=== PATIENT | male | born 1965 | race Caucasian/White ===

== ENCOUNTER 2018-06-09 18:31 | Emergency (ER) | payer SELFPAY ==
[~2018-06-09] VITALS: Ht 182.9 cm; Wt 93.0 kg
[2018-06-09 18:50] VITALS: Ht 182.9 cm; Wt 93.0 kg
== END 2018-06-09 22:33 | disposition expired ==
LOC: ED 18:31 → EDBD 18:31 → ED 22:33
DX: I46.9 Cardiac arrest, cause unspecified (principal)